=== PATIENT | female | born 1940 | race Native Hawaiian/Other Pacific Islander ===

== ENCOUNTER 2025-01-13 13:42 | Inpatient (IN) | payer OTHER ==
[~2025-01-13] VITALS: Ht 149.9 cm; Wt 49.9 kg
[2025-01-13] MEDS ORDERED: ATOR10TA PO (13:55)
[2025-01-13] MEDS ORDERED: LISI-782 PO (13:55)
[2025-01-13 14:25] LABS: BASOPHILS % (AUTO) 0.4 % (0.0-2.0); EOSINOPHILS # (AUTO) 0.1 K/uL (0.0-0.7); EOSINOPHILS % (AUTO) 1.6 % (0.0-7.0); HEMATOCRIT 30.4 % (31.2-41.9); HEMOGLOBIN 9.5 g/dL (10.9-14.3); LYMPHOCYTES # (AUTO) 1.7 K/uL (0.8-4.8); LYMPHOCYTES % (AUTO) 23.1 % (20.5-51.5); MEAN CORPUSCULAR HEMOGLOBIN 23.4 uug (24.7-32.8); MEAN CORPUSCULAR HGB CONC 31 g/dL (32.3-35.6); MEAN CORPUSCULAR VOLUME 74.7 fL (75.5-95.3); MONOCYTES # (AUTO) 0.7 K/uL (0.1-1.30); MONOCYTES % (AUTO) 9.5 % (0.0-11.0); NEUTROPHILS # (AUTO) 4.9 K/uL (1.8-8.9); NEUTROPHILS % (AUTO) 65.4 % (38.5-71.5); PLATELET COUNT (AUTO) 166 K/uL (179-408); RED BLOOD CELL COUNT(AUTO) 4.07 MIL/uL (3.63-4.92); RED CELL DISTRIBUTION WIDTH 15.8 % (12.3-17.7); WHITE BLOOD COUNT (AUTO) 7.6 K/uL (3.8-11.8)
[2025-01-13 14:35] LABS: CALCIUM 8.8 mg/dL (8.5-10.1); CARBON DIOXIDE 27 mmol/L (21-32); CHLORIDE 96 mmol/L (98-107); CREATININE 1.2 mg/dL (0.6-1.3); GLUCOSE 115 mg/dL (74-106); POTASSIUM 4.2 mmol/L (3.5-5.1); SODIUM SERUM 133 mmol/L (136-145); UREA NITROGEN, BLOOD 26 mg/dL (7-18)
[2025-01-13 14:36] LABS: DIFFERENTIAL COMMENT 1
[2025-01-13 14:51] LABS: ALANINE AMINOTRANSFERASE 29 U/L (14-59); ALBUMIN 3.7 g/dL (3.4-5.0); ALKALINE PHOSPHATASE 49 U/L (50-136); ASPARTATE AMINOTRANSFERASE 30 U/L (15-37); BILIRUBIN,DIRECT < 0.1 mg/dL (0.0-0.2); BILIRUBIN,TOTAL 0.2 mg/dL (0.2-1.0); NT-PRO BNP 821 pg/mL (0-125); TOTAL PROTEIN, SERUM 7.1 g/dL (6.4-8.2)
[2025-01-13] MEDS ORDERED: ACETAMINOPHEN 500 MG TABLET ONE (15:00)
[2025-01-13] MEDS: ACETAMINOPHEN 500 MG TABLET PO ONE (15:03)
[2025-01-13 15:37] LABS: *BILIRUBIN,URIN NEGATIVE (NEGATIVE); *BLOOD, URINE NEGATIVE (NEGATIVE); *CLARITY,URINE CLEAR (CLEAR); *COLOR,URINE YELLOW (YELLOW); *KETONES,URINE NEGATIVE (NEGATIVE); *PROTEIN,URINE NEGATIVE (NEGATIVE); *UROBILINOGEN,URINE 0.2 E.U./dl (NORMAL); LEUKOCYTE ESTERASE ,URINE NEGATIVE (NEGATIVE); NITRITE, URINE NEGATIVE (NEGATIVE); PH,URINE 5.5 (5.0-8.0); UGLUCOSE NEGATIVE (NEGATIVE)
[2025-01-13] MEDS ORDERED: FUROSEMIDE 20 MG/2 ML VIAL ONE (18:01)
[2025-01-13] MEDS: FUROSEMIDE 20 MG/2 ML VIAL IV ONE (18:05)
[2025-01-13] MEDS ORDERED: ONDANSETRON 4 MG/2 ML VIAL IV PRN (21:00)
[2025-01-13] MEDS ORDERED: ACETAMINOPHEN 325 MG TABLET PO PRN (21:00)
[2025-01-13] MEDS ORDERED: REMEDY ESSENTIAL ZINC PASTE 113 GM TP PRN (21:00)
[2025-01-13 21:42] VITALS: BP 175/71; TEMP 98.4; O2SAT 97
[2025-01-13] MEDS ORDERED: IOHEXOL 350 100 ML INFUS..BTL ONE (22:03)
[2025-01-13] MEDS: ENOXAPARIN SODIUM 30 MG/0.3 ML DISP.SYRIN SQ SCH (23:09)
[2025-01-13 23:13] LABS: THYROID STIMULATING HORMONE 1.157 mIU/mL (0.358-3.740)
[2025-01-14 01:29] VITALS: BP 148/58; TEMP 98.3; O2SAT 95
[2025-01-14 04:59] VITALS: BP 160/63; TEMP 98.4; O2SAT 96
[2025-01-14] MEDS: PANTOPRAZOLE SODIUM 40 MG TABLET.DR PO SCH (06:11)
[2025-01-14 06:48] LABS: BASOPHILS % (AUTO) 0.3 % (0.0-2.0); EOSINOPHILS # (AUTO) 0.2 K/uL (0.0-0.7); HEMATOCRIT 33.2 % (31.2-41.9); HEMOGLOBIN 10.5 g/dL (10.9-14.3); LYMPHOCYTES # (AUTO) 1.1 K/uL (0.8-4.8); MEAN CORPUSCULAR HEMOGLOBIN 23.5 uug (24.7-32.8); MEAN CORPUSCULAR HGB CONC 32 g/dL (32.3-35.6); MEAN CORPUSCULAR VOLUME 74.6 fL (75.5-95.3); MONOCYTES # (AUTO) 0.7 K/uL (0.1-1.30); NEUTROPHILS # (AUTO) 9.2 K/uL (1.8-8.9); NEUTROPHILS % (AUTO) 81.7 % (38.5-71.5); PLATELET COUNT (AUTO) 183 K/uL (179-408); RED BLOOD CELL COUNT(AUTO) 4.45 MIL/uL (3.63-4.92); RED CELL DISTRIBUTION WIDTH 16.4 % (12.3-17.7); WHITE BLOOD COUNT (AUTO) 11.2 K/uL (3.8-11.8)
[2025-01-14 07:04] LABS: DIFFERENTIAL COMMENT 1
[2025-01-14 07:07] LABS: CALCIUM 8.9 mg/dL (8.5-10.1); CARBON DIOXIDE 29 mmol/L (21-32); CHLORIDE 101 mmol/L (98-107); CREATININE 1.3 mg/dL (0.6-1.3); GLUCOSE 105 mg/dL (74-106); MAGNESIUM 2.1 mg/dL (1.8-2.4); PHOSPHOROUS 4.8 mg/dL (2.5-4.9); POTASSIUM 4.6 mmol/L (3.5-5.1); SODIUM SERUM 141 mmol/L (136-145); UREA NITROGEN, BLOOD 22 mg/dL (7-18)
[2025-01-14 08:00] VITALS: BP 126/67; TEMP 98.1; O2SAT 97
[2025-01-14] MEDS ORDERED: LISINOPRIL 5 MG TABLET PO SCH ×2 (09:00)
[2025-01-14] MEDS ORDERED: DILT-32 PO (11:41)
[2025-01-14] MEDS: DILTIAZEM HCL CD 120 MG CAP.SR.24H PO SCH (12:00)
[2025-01-14 16:21] VITALS: BP 131/65; TEMP 98; O2SAT 96
[2025-01-14 19:00] VITALS: BP 146/72; TEMP 98.9; O2SAT 96
[2025-01-14] MEDS: ATORVASTATIN 10 MG TABLET PO SCH (20:26)
[2025-01-14] MEDS: MELATONIN 3 MG TABLET PO SCH (20:26)
[2025-01-15] VITALS: BP 119/51; TEMP 98.6; O2SAT 95
[2025-01-15 04:00] VITALS: BP 129/60; TEMP 98.7; O2SAT 97
[2025-01-15 07:00] LABS: BASOPHILS % (AUTO) 0.4 % (0.0-2.0); EOSINOPHILS # (AUTO) 0.4 K/uL (0.0-0.7); EOSINOPHILS % (AUTO) 5.3 % (0.0-7.0); HEMATOCRIT 32.5 % (31.2-41.9); HEMOGLOBIN 10.2 g/dL (10.9-14.3); LYMPHOCYTES # (AUTO) 2.8 K/uL (0.8-4.8); MEAN CORPUSCULAR HEMOGLOBIN 23.6 uug (24.7-32.8); MEAN CORPUSCULAR HGB CONC 31 g/dL (32.3-35.6); MEAN CORPUSCULAR VOLUME 75.4 fL (75.5-95.3); MONOCYTES # (AUTO) 0.8 K/uL (0.1-1.30); MONOCYTES % (AUTO) 10.2 % (0.0-11.0); NEUTROPHILS # (AUTO) 3.5 K/uL (1.8-8.9); NEUTROPHILS % (AUTO) 47.1 % (38.5-71.5); PLATELET COUNT (AUTO) 186 K/uL (179-408); RED BLOOD CELL COUNT(AUTO) 4.31 MIL/uL (3.63-4.92); WHITE BLOOD COUNT (AUTO) 7.5 K/uL (3.8-11.8)
[2025-01-15 07:21] LABS: CALCIUM 9.1 mg/dL (8.5-10.1); CARBON DIOXIDE 28 mmol/L (21-32); CHLORIDE 100 mmol/L (98-107); CREATININE 1.5 mg/dL (0.6-1.3); GLUCOSE 113 mg/dL (74-106); MAGNESIUM 2.4 mg/dL (1.8-2.4); PHOSPHOROUS 4.7 mg/dL (2.5-4.9); POTASSIUM 4.1 mmol/L (3.5-5.1); SODIUM SERUM 137 mmol/L (136-145); UREA NITROGEN, BLOOD 35 mg/dL (7-18)
[2025-01-15 07:23] VITALS: BP 146/66; TEMP 98.1; O2SAT 94
[2025-01-15 07:26] LABS: DIFFERENTIAL COMMENT 1
[2025-01-15] MEDS: ENSURE ENLIVE (VAN) 240 ML LIQUID PO SCH (08:25)
[2025-01-15 11:13] VITALS: BP 155/70; TEMP 98.6; O2SAT 94
== END 2025-01-15 15:40 | disposition home or self-care (01) | DRG 198 ==
LOC: ER 13:42 → TELE3 20:23 → MEDSURG3 01-15 10:00
PROVIDERS: ADMIT Nurse Practitioner Acute Care; ATTEND Nurse Practitioner Acute Care
DX: I25.10 Atherosclerotic heart disease of native coronary artery without angina pectoris (principal); I50.33 Acute on chronic diastolic (congestive) heart failure; N17.9 Acute kidney failure, unspecified; D69.6 Thrombocytopenia, unspecified; E87.1 Hypo-osmolality and hyponatremia; D63.8 Anemia in other chronic diseases classified elsewhere; I25.2 Old myocardial infarction; R50.9 Fever, unspecified; E78.5 Hyperlipidemia, unspecified; I35.0 Nonrheumatic aortic (valve) stenosis; I08.0 Rheumatic disorders of both mitral and aortic valves; K29.70 Gastritis, unspecified, without bleeding; I11.0 Hypertensive heart disease with heart failure; M15.9 Polyosteoarthritis, unspecified
CPT/HCPCS: 36415; 70030-TC; 71045; 71275; 83550; 83605; 83735; 84100; 84443; 84484; 85025; 85730; 87086; 93307; A4606; A4663; A9150; G0378; J1650; J1940; Q9967